=== PATIENT | female | born 1985 | race Caucasian/White ===

== ENCOUNTER 2016-04-16 17:55 | Emergency (ER) | payer OTHER ==
--- NOTE | 2016-04-16 18:22 | PDOC ---
Rapid Medical Evaluation Time Seen by Provider: 04/16/16 18:19 Medical Evaluation: Allergies Allergy/AdvReac Type Severity Reaction Status Date / Time No Known Allergies Allergy Verified 02/04/16 17:21 04/16/16 18:19 31 yo F c/o "hot" left breast pain. Last breast fed x9 months ago. Denies fever 2014: left breast biopsy; "normal"
[2016-04-16 18:23] VITALS: BP 121/76; PULSE 82; TEMP 98.8; BMI 22.6
[2016-04-16] MEDS ORDERED: IBUPROFEN 600 MG TABLET (FP) PO ONE ×2 (19:23→19:27)
--- NOTE | 2016-04-16 19:25 | PDOC ---
History of Present Illness - General Chief Complaint: Pain Stated Complaint: BREAST PAIN Time Seen by Provider: 04/16/16 18:19 History Source: Patient Exam Limitations: No Limitations - History of Present Illness Initial Comments: CHIEF COMPLAINT: 31 y/o afebrile female with PMH breast biopsy in 2013 ( negative) c/o left breast pain today. HISTORY OF PRESENT ILLNESS: The patient states she thinks her left breast is also hot compared to right. She denies f/c, n/v/d, redness/swelling to left breast, discharge from nipples. The patient does admit she lifts her 21 month old daughter constantly and went to physical therapy for her back yesterday. Vital signs on arrival are within normal limits. REVIEW OF SYSTEMS: GENERAL/CONSTITUTIONAL: No fever/chills. No weakness. No weight change. CARDIOVASCULAR: No chest pain or shortness of breath. RESPIRATORY: No cough, wheezing, or hemoptysis. MUSCULOSKELETAL: No joint or muscle swelling or pain. No neck or back pain. + left breast pain and warmth SKIN: No rash or easy bruising. NEUROLOGIC: No headache, vertigo, loss of consciousness, or loss of sensation. PHYSICAL EXAM: GENERAL: The patient is awake, alert, and fully oriented, in no acute distress. She is well appearing and ambulatory. HEAD: Normal with no signs of trauma. BREAST: No erythema, edema or warmth to left breast as compared to right. No palpable masses or lymph nodes in left breast or left tail of ahuja. Pain reproduced with palpation of right upper outer quadrant of left breast. No wei d'orange. No nipple inversion. No discharge expressed from nipples with pressure. EXTREMITIES: Normal range of motion, no edema. NEUROLOGICAL: Normal speech, normal gait. PSYCH: Normal mood, normal affect. SKIN: Warm, Dry, normal turgor, no rashes or lesions noted. Past History - Past Medical History Allergies/Adverse Reactions: Allergies Allergy/AdvReac Type Severity Reaction Status Date / Time No Known Allergies Allergy Verified 04/16/16 18:23 Home Medications: Ambulatory Orders NK [No Known Home Medication] 04/16/16 Asthma: No Cancer: No Cardiac Disorders: No Diabetes: No HTN: No Seizures: No Thyroid Disease: No - Psycho/Social/Smoking Cessation Hx Suicidal Ideation: No Smoking Status: No Smoking History: Never smoked Have you smoked in the past 12 months: No Number of Cigarettes Smoked Daily: 0 Information on smoking cessation initiated: No Hx Alcohol Use: No Drug/Substance Use Hx: No Hx Substance Use Treatment: No *Physical Exam - Vital Signs Last Vital Signs Temp Pulse Resp BP Pulse Ox 98.8 F 82 18 121/76 100 04/16/16 18:19 04/16/16 18:19 04/16/16 18:19 04/16/16 18:19 04/16/16 18:19 Medical Decision Making - Medical Decision Making A/P: 31 y/o afebrile female with left mastitis which I suspect is muscular in nature. Will give PO motrin in the ER. Suggested the patient refrain from any lifting, and take Motrin every 6 hours until symptoms improve. Instructed her to f/u with her breast doctor for a possible ultrasound if symptoms do not improve in 1 week. Instructed her to return to the ER with any worsening or concerning symptoms. The patient verbalizes understanding of all instructions, has no further questions and is awaiting discharge. *DC/Admit/Observation/Transfer Diagnosis at time of Disposition: Breast pain in female - Referrals Referrals: Elba Damian [Primary Care Provider] - Call tomorrow - Patient Instructions Printed Discharge Instructions: DI for Breast Pain (Mastalgia), DI for Muscle Strain Additional Instructions: Discharge Instructions: -Take 400mg of Motrin every 6 hours with food for pain -Do not lift anything with your left arm until symptoms improve -Follow up with your doctor within 1 week -Return to the ER with any worsening or concerning symptoms
== END 2016-04-16 19:30 | disposition home or self-care (01) ==
LOC: JERFT 17:55
DX: N64.4 Mastodynia (principal); N61.0 Mastitis without abscess
CPT/HCPCS: 99281-25

== ENCOUNTER 2017-11-02 07:50 | Emergency (ER) | payer OTHER ==
[2017-11-02 08:01] VITALS: BP 129/72; PULSE 70; TEMP 98.2; BMI 21.9
[2017-11-02] MEDS ORDERED: SODIUM CHLORIDE 1,000 ML IV STA (08:19)
[2017-11-02] MEDS ORDERED: ONDANSETRON 4 MG/2 ML VIAL IVPUSH ONE (08:19)
[2017-11-02] MEDS ORDERED: FAMOTIDINE 20 MG/50 ML IVPB 20 MG/50 ML MG IVPB ONE ×2 (08:19→08:39)
[2017-11-02] MEDS ORDERED: ONDANSETRON 4 MG/2 ML VIAL ONE (08:39)
--- NOTE | 2017-11-02 08:39 | PDOC ---
Attending Attestation - Resident Resident Name: AlfredotimNikhil - ED Attending Attestation I have performed the following: I have examined & evaluated the patient, The case was reviewed & discussed with the resident, I agree w/resident's findings & plan, Exceptions are as noted - HPI HPI: 11/02/17 13:51 Agree with residents HPI - Physicial Exam PE: 11/02/17 13:51 Agree with residents PE - Medical Decision Making 11/02/17 13:56 32 years old no significant past medical history presents emergency Department with nausea vomiting and diarrhea No significant abdominal pain on examination. History examination consistent viral versus foodborne illness. Reevaluation. Status post IV fluids Zofran patient not tolerating fluids by mouth feels much better repeat abdominal examination with no pain. We'll discharge home with prescription for Zofran. Findings, need for follow-up and strict return instructions discussed with patient.
[2017-11-02 08:44] LABS: HCG,QUALITATIVE URINE Negative
[2017-11-02 08:46] LABS: URINE APPEARANCE SLCLOUDY; URINE BILIRUBIN NEGATIVE (<2.0 mg/dL); URINE COLOR YELLOW; URINE GLUCOSE (UA) NEGATIVE (NEGATIVE); URINE KETONE NEGATIVE (NEGATIVE); URINE NITRITE NEGATIVE (NEGATIVE); URINE UROBILINOGEN NEGATIVE mg/dL (0.2-1.0)
--- NOTE | 2017-11-02 08:46 | PDOC ---
History of Present Illness - General Chief Complaint: Nausea/Vomiting Stated Complaint: VOMITING/DIZZY Time Seen by Provider: 11/02/17 08:04 History Source: Patient Exam Limitations: No Limitations - History of Present Illness Initial Comments: 11/02/17 08:41 Patient is a 32F with no significant medical history complaining of vomiting that started this morning. Patient reports 4-5 episodes of non-bloody non- billious vomiting. Denies abdominal pain. Denies dysuria. Denies fevers, chills. Denies sick contacts. Patient states that her LMP was in the beginning of the month. Last bowel movement yesterday. Denies surgical history. Patient reports feeling dizzy before vomiting. Past History - Past Medical History Allergies/Adverse Reactions: Allergies Allergy/AdvReac Type Severity Reaction Status Date / Time No Known Allergies Allergy Verified 11/02/17 07:52 Home Medications: Ambulatory Orders Cephalexin Monohydrate [Keflex -] 500 mg PO BID #10 capsule 11/02/17 Ondansetron [Zofran -] 4 mg PO BID #5 tablet 11/02/17 Asthma: No Cancer: No Cardiac Disorders: No COPD: No Diabetes: No HTN: No Seizures: No Thyroid Disease: No - Suicide/Smoking/Psychosocial Hx Smoking Status: No Smoking History: Never smoked Have you smoked in the past 12 months: No Number of Cigarettes Smoked Daily: 0 Hx Alcohol Use: No Drug/Substance Use Hx: No Hx Substance Use Treatment: No Review of Systems - Review of Systems Comments:: 11/02/17 08:42 GENERAL/CONSTITUTIONAL: No fever or chills. No weakness. HEAD, EYES, EARS, NOSE AND THROAT: No change in vision.No sore throat. CARDIOVASCULAR: No chest pain or shortness of breath RESPIRATORY: No cough, wheezing, or hemoptysis. GASTROINTESTINAL: +nausea, +vomiting, no diarrhea or constipation. GENITOURINARY: No dysuria, frequency, or change in urination. MUSCULOSKELETAL: No joint or muscle swelling or pain. No neck or back pain. SKIN: No rash NEUROLOGIC: No headache, +vertigo. No loss of consciousness, or change in strength/sensation. ENDOCRINE: No increased thirst. No abnormal weight change HEMATOLOGIC/LYMPHATIC: No anemia, easy bleeding, or history of blood clots. ALLERGIC/IMMUNOLOGIC: No hives or skin allergy. *Physical Exam - Vital Signs Last Vital Signs Temp Pulse Resp BP Pulse Ox 98.2 F 70 16 129/72 100 11/02/17 07:52 11/02/17 07:52 11/02/17 07:52 11/02/17 07:52 11/02/17 07:52 - Physical Exam Comments: 11/02/17 08:44 GENERAL: Awake, alert, and fully oriented, in no acute distress HEAD: No signs of trauma, normocephalic, atraumatic EYES: PERRLA, EOMI, sclera anicteric, conjunctiva clear ENT: Auricles normal inspection, hearing grossly normal, nares patent, oropharynx clear without exudates. Moist mucosa NECK: Normal ROM, supple, no lymphadenopathy, JVD, or masses LUNGS: No distress, speaks full sentences, clear to auscultation bilaterally HEART: Regular rate and rhythm, normal S1 and S2, no murmurs, rubs or gallops, peripheral pulses normal and equal bilaterally. ABDOMEN: Soft, +mild LUQ tenderness, normoactive bowel sounds. No guarding, no rebound. No masses EXTREMITIES: Normal inspection, Normal range of motion, no edema. No clubbing or cyanosis. NEUROLOGICAL: Cranial nerves II through XII grossly intact. Normal speech, normal gait, no focal sensorimotor deficits SKIN: Warm, Dry, normal turgor, no rashes or lesions noted. ED Treatment Course - LABORATORY CBC & Chemistry Diagram: 11/02/17 08:36 11/02/17 08:36 Medical Decision Making - Medical Decision Making 11/02/17 08:44 Patient is 32F here today with vomiting. Vital signs normal and stable. DDx includes, but is not limited to: gastritis, gastroenteritis, food poisoning, pancreatitis. Patient reports no lower abdominal or pelvic pain. No RUQ or lower abdominal pain on exam. Do not believe that patient has cholecystitis, appendicitis, diverticulitis given these findings. Will treat with fluids, zofran, pepcid. Will workup with abdominal labs, ua, upreg. 11/02/17 09:31 Patient reassessed, feeling better. UA shows evidence of UTI. Upreg negative. CBC normal. CMP pending. Given keflex for UTI, will send home with zofran for vomiting. Will hydrate, PO challenge, and discharge. 11/02/17 09:38 CMP normal. Patient passed PO challenge. Given return precautions. Discharged home. *DC/Admit/Observation/Transfer Diagnosis at time of Disposition: Nausea and vomiting, UTI (urinary tract infection) - Discharge Dispostion Disposition: HOME Condition at time of disposition: Good Decision to Admit order: No - Prescriptions Prescriptions: Cephalexin Monohydrate [Keflex -] 500 mg PO BID #10 capsule Ondansetron [Zofran -] 4 mg PO BID #5 tablet - Referrals Referrals: Elba Damian [Primary Care Provider] - - Patient Instructions Printed Discharge Instructions: DI for Urinary Tract Infection (UTI), DI for Vomiting -- Adult Additional Instructions: Please return if you have any new, worsening or concerning symptoms. Please follow up with your primary care physician this week. - Post Discharge Activity
[2017-11-02 08:51] LABS: BASO % 0.5 % (0-2.0); EOS % 0.5 % (0-4.5); HEMATOCRIT 38.3 % (32.4-45.2); HEMOGLOBIN 12.9 GM/dL (10.7-15.3); LYMPH % 17.5 % (8-40); MCH 28.6 pg (25.7-33.7); MCHC 33.6 g/dl (32.0-36.0); MEAN CELL VOLUME 85.1 fl (80-96); MEAN PLT VOLUME 7.6 fl (7.5-11.1); MONO % 4.8 % (3.8-10.2); NEUT % 76.7 % (42.8-82.8); PLATELET COUNT 263 K/MM3 (134-434); RBC 4.51 M/mm3 (3.60-5.2); RDW 13.1 % (11.6-15.6); WHITE BLOOD COUNT 6.7 K/mm3 (4.0-10.0)
[2017-11-02 08:52] LABS: URINE LEUK ESTERASE 3+ (NEGATIVE); URINE PROTEIN 1+ (NEGATIVE)
[2017-11-02 08:59] LABS: EPI CELLS MODERATE /HPF (FEW); URINE BACTERIA RARE /hpf (NONE SEEN)
[2017-11-02] MEDS ORDERED: CEPHALEXIN MONOHYDRATE 500 MG CAPSULE (UD) PO ONE (09:19)
[2017-11-02 09:33] LABS: ANION GAP 11 MMOL/L (8-16); BLOOD UREA NITROGEN 16 mg/dL (7-18); CALCIUM 9.3 mg/dL (8.5-10.1); CHLORIDE 106 mmol/L (98-107); CO2 24 mmol/L (21-32); GLUCOSE,RANDOM 97 mg/dL (74-106); LIPASE 158 U/L (73-393); POTASSIUM 3.6 mmol/L (3.5-5.1); SGOT/AST 13 U/L (15-37); SODIUM 141 mmol/L (136-145)
[2017-11-02 09:35] LABS: ALK PHOS 46 U/L (45-117); BILIRUBIN,TOTAL 0.7 mg/dL (0.2-1.0); CREATININE 0.6 mg/dL (0.55-1.3); SGPT/ALT 19 U/L (13-61); TOT PROT 7.6 g/dl (6.4-8.2)
[2017-11-02] MEDS ORDERED: CEPHALEXIN MONOHYDRATE 500 MG CAPSULE (UD) ONE (09:49)
== END 2017-11-02 09:58 | disposition home or self-care (01) ==
LOC: JER 07:50
PROC: 3E033GC Introduction of Other Therapeutic Substance into Peripheral Vein, Percutaneous Approach (ICD-10-PCS; principal; 2017-11-02)
PROC: 3E0337Z Introduction of Electrolytic and Water Balance Substance into Peripheral Vein, Percutaneous Approach (ICD-10-PCS; 2017-11-02)
DX: R42 Dizziness and giddiness (principal); R11.2 Nausea with vomiting, unspecified; N39.0 Urinary tract infection, site not specified; R11.10 Vomiting, unspecified
CPT/HCPCS: 36415; 80053; 81003; 81015; 83690; 84703; 85025; 87086; 96361; 96365; 96375; 99283-25; J7030

== ENCOUNTER 2017-11-02 19:17 | Emergency (ER) | payer OTHER ==
[2017-11-02 19:47] VITALS: BP 113/75; PULSE 82; TEMP 98.3; BMI 22.8
[2017-11-02] MEDS ORDERED: ONDANSETRON *ODT* 4 MG TABLET SL ONE (20:12)
[2017-11-02] MEDS ORDERED: SODIUM CHLORIDE 1,000 ML IV STA (20:12)
[2017-11-02] MEDS ORDERED: ONDANSETRON *ODT* 4 MG TABLET ONE (20:17)
--- NOTE | 2017-11-02 20:52 | PDOC ---
History of Present Illness - General Chief Complaint: Nausea Stated Complaint: NAUSEA Time Seen by Provider: 11/02/17 19:44 History Source: Patient Exam Limitations: No Limitations - History of Present Illness Initial Comments: 11/02/17 22:35 Ms. Bustillos is a 32 yo F with no pertinent past medical hx who presents to the emergency department with nausea. She was in the department earlier in the day where labs showed she had a UTI. She continued to have nausea and vomiting episodes (5x) Past History - Past Medical History Allergies/Adverse Reactions: Allergies Allergy/AdvReac Type Severity Reaction Status Date / Time No Known Allergies Allergy Verified 11/02/17 07:52 Home Medications: Ambulatory Orders Cephalexin Monohydrate [Keflex -] 500 mg PO BID #10 capsule 11/02/17 Meclizine HCl 25 mg PO QID PRN #28 tablet 11/02/17 Meclizine HCl 25 mg PO QID PRN #28 tablet 11/02/17 Meclizine HCl 25 mg PO QID PRN #28 tablet 11/02/17 Ondansetron [Zofran -] 4 mg PO BID #5 tablet 11/02/17 Asthma: No Cancer: No Cardiac Disorders: No COPD: No Diabetes: No HTN: No Seizures: No Thyroid Disease: No - Suicide/Smoking/Psychosocial Hx Smoking Status: No Smoking History: Never smoked Have you smoked in the past 12 months: No Number of Cigarettes Smoked Daily: 0 Information on smoking cessation initiated: No Hx Alcohol Use: No Drug/Substance Use Hx: No Substance Use Type: None Hx Substance Use Treatment: No *Physical Exam - Vital Signs Last Vital Signs Temp Pulse Resp BP Pulse Ox 98.3 F 82 18 113/75 100 11/02/17 19:44 11/02/17 19:44 11/02/17 19:44 11/02/17 19:44 11/02/17 19:44 ED Treatment Course - Medications Given in the ED: ED Medications Discontinued Medications Generic Name Dose Route Start Last Admin Trade Name Freq PRN Reason Stop Dose Admin Ondansetron HCl 8 mg 11/02/17 20:12 11/02/17 20:20 Zofran Odt - SL 11/02/17 20:13 8 mg ONCE ONE Administration *DC/Admit/Observation/Transfer Diagnosis at time of Disposition: Vertigo, Nausea Vomiting Qualifiers: Vomiting type: unspecified Vomiting Intractability: unspecified Nausea presence : with nausea Qualified Code(s): R11.2 - Nausea with vomiting, unspecified - Discharge Dispostion Disposition: HOME Decision to Admit order: No - Prescriptions Prescriptions: Meclizine HCl 25 mg PO QID PRN #28 tablet PRN Reason: Nausea And/Or Vomiting Meclizine HCl 25 mg PO QID PRN #28 tablet PRN Reason: Nausea And/Or Vomiting - Referrals Referrals: [facility] [place] [Provider Group] - Patient Instructions Printed Discharge Instructions: DI for Vertigo Additional Instructions: You have been seen in the emergency department for your nausea. You have been evaluated and determined to have vertigo. Please take the meclizine as prescribed. Please follow up with your primary medical doctor within the next 24 -36 hours for follow up care and management. Please return to the emergency department if you have worsening of symptoms or experience new concerning symptoms. Do not drive or operate machinery while taking meclizine. Thank you. - Post Discharge Activity Forms/Work/School Notes: Back to Work
--- NOTE | 2017-11-02 22:47 | PDOC ---
Attending Attestation - HPI HPI: 11/02/17 22:52 The patient is a 32 year old female, with no significant past medical history, who presents to the emergency department with, nausea and vomiting. As per patient, she was seen in the ED earlier today for similar symptoms and discharged on Keflex for a UTI. She reports upon returning home her symptoms continued with multiple episodes of NBNB emesis. - Physicial Exam PE: 11/02/17 22:52 GENERAL: Well-appearing, well-nourished. No apparent distress. HEENT: Normocephalic, atraumatic. PERRL, EOM intact. CARDIOVASCULAR: Normal S1, S2. Regular rate and rhythm. PULMONARY: Clear to auscultation bilaterally. ABDOMEN: Soft, non-distended, non-tender. EXTREMITIES: Normal ROM in all four extremities. No gross deformities. SKIN: Warm, dry. No rash NEUROLOGICAL: No focal neurological deficits. <Ara Salgado - Last Filed: 11/02/17 22:53> - Resident Resident Name: Odell Caballero - ED Attending Attestation I have performed the following: I have examined & evaluated the patient, The case was reviewed & discussed with the resident, I agree w/resident's findings & plan, Exceptions are as noted - Medical Decision Making 11/02/17 22:59 pt recieved more flluids ekg nsr she has some vertiginous symptoms and was RX some meclizine <Anastasiia Tejeda - Last Filed: 11/02/17 23:00> Attestations - Attestations 11/02/17 22:52 Documentation prepared by Ara Salgado, acting as medical physics professor for Anastasiia Tejeda MD. <Ara Salgado - Last Filed: 11/02/17 22:53>
--- NOTE | 2017-11-03 16:44 | EKG ---
Test Reason : Blood Pressure : / mmHG Vent. Rate : 065 BPM Atrial Rate : 065 BPM P-R Int : 112 ms QRS Dur : 090 ms QT Int : 414 ms P-R-T Axes : 070 066 048 degrees QTc Int : 430 ms NORMAL SINUS RHYTHM NORMAL ECG NO PREVIOUS ECGS AVAILABLE Confirmed by Brian Horton ([id number]) on 11/03/2017 4:43:21 PM Referred By: Confirmed By:Brian Horton
== END 2017-11-02 23:15 | disposition home or self-care (01) ==
LOC: JER 19:17
PROC: 3E0337Z Introduction of Electrolytic and Water Balance Substance into Peripheral Vein, Percutaneous Approach (ICD-10-PCS; principal; 2017-11-02)
DX: R42 Dizziness and giddiness (principal); R11.2 Nausea with vomiting, unspecified
CPT/HCPCS: 93005; 93010; 96360; 99282-25; J7030; Q0162